=== PATIENT | female | born 1990 | race Caucasian/White ===

== ENCOUNTER 2016-09-20 20:44 | Emergency (ER) | payer MEDICAID ==
[2016-09-20 20:53] VITALS: BP 123/70; PULSE 84; RESP 17; TEMP 98.6; O2SAT 100
--- NOTE | 2016-09-20 21:21 | ED PDOC ---
HPI: Skin/Bite Injury Time Seen by Provider: 09/20/16 20:55 Chief Complaint (Nursing): Abnormal Skin Integrity Chief Complaint (Provider): hives History Per: Patient History/Exam Limitations: no limitations Onset/Duration Of Symptoms: Days (x 3) Current Symptoms Are (Timing): Still Present Additional Complaint(s): Sharad Pedraza is a 25 year old female, with a previous medical history of asthma, who presents to the ED with complaints of "hives" ongoing for the past 3 days. Pt reports associated symptoms of fever and chills. Pt denies any coughing, chest pain, shortness of breath or using new lotions. Pt reports hives subside when she is not home but once she goes home the skin begins to break out. 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 Pt reports to self medicating with nyquil to alleviate symptoms. PMD: none provided Past Medical History Reviewed: Historical Data, Nursing Documentation, Vital Signs Vital Signs: Last Vital Signs Temp 98.6 F 09/20/16 20:49 Pulse 84 09/20/16 20:49 Resp 17 09/20/16 20:49 BP 123/70 09/20/16 20:49 Pulse Ox 100 09/20/16 21:24 - Medical History PMH: Asthma, Bronchitis, Pneumonia - Family History Family History: States: Unknown Family Hx - Home Medications Home Medications: Ambulatory Orders Medication Instructions Recorded Albuterol HFA [Ventolin HFA 90 1 puff IH BID PRN #1 unit 07/28/16 mcg/actuation (8 g)] predniSONE [predniSONE Tab] 20 mg PO 12 #12 tab 09/20/16 - Allergies Allergies/Adverse Reactions: Allergies Allergy/AdvReac Type Severity Reaction Status Date / Time No Known Allergies Allergy Verified 07/28/16 17:08 Review of Systems ROS Statement: Except As Marked, All Systems Reviewed And Found Negative Constitutional: Positive for: Fever, Chills Cardiovascular: Negative for: Chest Pain Respiratory: Negative for: Cough, Shortness of Breath Skin: Positive for: Rash Physical Exam - Reviewed Nursing Documentation Reviewed: Yes Vital Signs Reviewed: Yes - Physical Exam Appears: Positive for: Well, Non-toxic, No Acute Distress Head Exam: Positive for: ATRAUMATIC, NORMAL INSPECTION, NORMOCEPHALIC Skin: Positive for: Normal Color (erythematous papules noted on face. several lesions have pinpoint white center ), Warm, Dry Eye Exam: Positive for: EOMI, Normal appearance, PERRL ENT: Positive for: Normal ENT Inspection. Negative for: Pharyngeal Erythema, Tonsillar Exudate, Tonsillar Swelling Cardiovascular/Chest: Positive for: Regular Rate, Rhythm Respiratory: Positive for: CNT, Normal Breath Sounds Neurologic/Psych: Positive for: Alert, Oriented - ECG O2 Sat by Pulse Oximetry: 100 (RA) Pulse Ox Interpretation: Normal Medical Decision Making Medical Decision Making: Initial Impression: Acne Initial Plan: * Influenza A B * reevaluation * * Discussed that rash on face and chest appears to be acne. Pt states it is not acne and she needs something right now for the rash. Scribe Attestation: Documented by Alyssa Cho, acting as a scribe for Ana Arshad PA-C. Provider Scribe Attestation: All medical record entries made by the Scribe were at my direction and personally dictated by me. I have reviewed the chart and agree that the record accurately reflects my personal performance of the history, physical exam, medical decision making, and the department course for this patient. I have also personally directed, reviewed, and agree with the discharge instructions and disposition. Disposition - Clinical Impression Clinical Impression: Rash - Disposition Referrals: FAMILY PROVIDER,NO [Primary Care Provider] - Disposition: Routine/Home Disposition Time: 23:04 Condition: STABLE Prescriptions: predniSONE [predniSONE Tab] 20 mg PO 12 #12 tab Instructions: Acute Rash (ED)
== END 2016-09-20 23:18 | disposition left against medical advice (07) ==
LOC: H.ER 20:44
DX: R21 Rash and other nonspecific skin eruption (principal)

== ENCOUNTER 2017-09-25 21:23 | Emergency (ER) | payer MEDICAID ==
[2017-09-25] MEDS ORDERED: Penicillin G Benzathine 1.2 Mill Unit/2 ml Syr IM ONE (23:10)
--- NOTE | 2017-09-25 23:13 | ED PDOC ---
HPI: CCC, URI, Sore Throat Time Seen by Provider: 09/25/17 21:39 Chief Complaint (Nursing): ENT Problem Chief Complaint (Provider): sore throat History Per: Patient History/Exam Limitations: no limitations Onset/Duration Of Symptoms: Days (3-4x) Associated Symptoms: Fever Additional Complaint(s): Patient reports 3-4 days of fever with sore throat. Patient states that she had a throat infection 4 weeks ago and visited her PMD and was given Amoxicillin and completed it. Otherwise: (-) cough, (-) URI symptoms, (-) SOB, (-) chest pain, (-) N/V/D, (-) abdominal pain, (-) flank pain, (-) urinary symptoms, (-) recent travel, (-) sick contacts. PMD: Provider TBD Past Medical History Reviewed: Historical Data, Nursing Documentation, Vital Signs Vital Signs: Last Vital Signs Temp 99.3 F 09/25/17 23:35 Pulse 98 H 09/25/17 23:35 Resp 18 09/25/17 23:35 BP 116/80 09/25/17 23:35 Pulse Ox 97 09/26/17 04:38 - Medical History PMH: Asthma, Bronchitis, Pneumonia - Family History Family History: States: Unknown Family Hx - Social History Current smoker - smoking cessation education provided: No Alcohol: None Drugs: Denies - Home Medications Home Medications: Ambulatory Orders Medication Instructions Recorded Albuterol HFA [Ventolin HFA 90 1 puff IH BID PRN #1 unit 07/28/16 mcg/actuation (8 g)] predniSONE [predniSONE Tab] 20 mg PO 12 #12 tab 09/20/16 Ibuprofen [Motrin Tab] 600 mg PO QID PRN #20 tab 09/25/17 - Allergies Allergies/Adverse Reactions: Allergies Allergy/AdvReac Type Severity Reaction Status Date / Time No Known Allergies Allergy Verified 07/28/16 17:08 Review of Systems ROS Statement: Except As Marked, All Systems Reviewed And Found Negative Constitutional: Positive for: Fever ENT: Positive for: Throat Pain Cardiovascular: Negative for: Chest Pain Respiratory: Negative for: Cough, Shortness of Breath Gastrointestinal: Negative for: Nausea, Vomiting, Abdominal Pain, Diarrhea Physical Exam - Physical Exam Comments: GENERAL APPEARANCE: Patient is awake, alert, oriented x 3, in no acute distress. SKIN: Warm, dry; (-) cyanosis, (-) rash. EYES: (-) conjunctival pallor, (-) scleral icterus, (-) conjunctival hemorrhage. ENMT: Mucous membranes moist. TMs: (-) erythema. Airway patent: (-) stridor. Pharynx: (+) erythema and edema to the tonsils, (-) exudate. NECK: (-) tenderness, (-) stiffness, (-) meningismus, (-) lymphadenopathy. CHEST AND RESPIRATORY: Lungs: (-) rales, (-) rhonchi, (-) wheezes, (-) rub; breath sounds equal bilaterally. HEART AND CARDIOVASCULAR: (-) irregularity; (-) murmur, (-) gallop, (-) rub. ABDOMEN AND GI: Soft; (-) tenderness, (-) guarding; (-) organomegaly; (-) mass. EXTREMITIES: (-) deformity. NEURO AND PSYCH: Mental status as above; (-) focal findings. - ECG O2 Sat by Pulse Oximetry: 97 (RA) Pulse Ox Interpretation: Normal Medical Decision Making Medical Decision Making: Time: 2158 Initial Plan: --Penicillin G Benzathine 1,200,000 units --Toradol 60mg --POC Urine Test --Rapid Strep Group A Antigen --Reevaluation Rapid strep : (+). On re-evaluation, patient laying in bed comfortably in no acute distress. On exam, patient remains AAOx3, in no acute distress, speaking in full sentences, no drooling. Diagnostic results d/w the patient in great detail. Diagnosis of strep pharyngitis d/w the patient. Medicated with pcn benzathine 1.2 million units IM. Based on history, exam and diagnostic results, plan will be for outpatient follow up. Patient instructed to follow-up with pmd in 1-2 days without fail. Advised to take medication as prescribed. Return to the emergency room at any time for any new or worsening symptoms. Patient states she fully agrees with and understands discharge instructions. States that she agrees with the plan and disposition. Verbalized and repeated discharge instructions and plan. I have given the patient opportunity to ask any additional questions. Scribe Attestation: Documented by Luis Antonio Bauer, acting as a scribe for Sosa Nelson PA-C Provider Scribe Attestation: All medical record entries made by the Scribe were at my direction and personally dictated by me. I have reviewed the chart and agree that the record accurately reflects my personal performance of the history, physical exam, medical decision making, and the department course for this patient. I have also personally directed, reviewed, and agree with the discharge instructions and disposition. Disposition - Clinical Impression Clinical Impression: Pharyngitis - Patient ED Disposition Is Patient to be Admitted: No Counseled Patient/Family Regarding: Studies Performed, Diagnosis, Need For Followup, Rx Given - Disposition Referrals: Provider CELIA, [Primary Care Provider] - Disposition: Routine/Home Disposition Time: 23:13 Condition: STABLE Additional Instructions: Thank you for letting us take care of you today. You were treated for strep pharyngitis. The emergency medical care you received today was directed at your acute symptoms. If you were prescribed any medication, please fill it and take as directed. It may take several days for your symptoms to resolve. Return to the Emergency Department if your symptoms worsen, do not improve, or if you have any other problems. Please contact your doctor in 2 days for re-evaluation and follow up. Bring any paperwork you were given at discharge with you along with any medications you are taking to your follow up visit. Our treatment cannot replace ongoing medical care by a primary care provider (PCP) outside of the emergency department. Thank you for allowing the [facility] team to be part of your care today. 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
[2017-09-25 23:36] VITALS: BP 116/80; PULSE 98; RESP 18; TEMP 99.3
[2017-09-26 04:34] VITALS: O2SAT 97
== END 2017-09-25 23:36 | disposition home or self-care (01) ==
LOC: H.ER 21:23 → SUPCPDRO 21:23 → H.ER 23:36
DX: J02.9 Acute pharyngitis, unspecified (principal)
CPT/HCPCS: 81025; 87430; 96372; 99282; J0561; J1885

== ENCOUNTER 2018-07-13 13:35 | Emergency (ER) | payer MEDICAID ==
[2018-07-13 13:55] VITALS: BP 123/85; PULSE 74; RESP 18; TEMP 98.5; O2SAT 98
[2018-07-13] MEDS ORDERED: cefTRIAXone (Rocephin) 250 mg Inj IM ONE (14:20)
--- NOTE | 2018-07-13 14:27 | ED PDOC ---
HPI: Female Pain Time Seen by Provider: 07/13/18 13:56 Chief Complaint (Nursing): Female Genitourinary Chief Complaint (Provider): vaginal discharge History Per: Patient History/Exam Limitations: no limitations Onset/Duration Of Symptoms: Days Current Symptoms Are (Timing): Still Present Severity: None Associated Symptoms: denies: Fever, Urinary Symptoms Additional Complaint(s): Pt. is a healthy 27 y/o Female who reports 3 day history of whitish-yellow vaginal discharge, which is slightly odorous as per pt. Pt. reports she is sexually active, and is concerned for STIs. Pt. denies abd. pain, fevers. Abnormal Vaginal Bleeding: No Past Medical History Vital Signs: Last Vital Signs Temp 98.5 F 07/13/18 13:54 Pulse 74 07/13/18 13:54 Resp 18 07/13/18 13:54 BP 123/85 07/13/18 13:54 Pulse Ox 98 07/13/18 13:54 - Medical History PMH: Asthma, Bronchitis, Pneumonia - Surgical History Surgical History: No Surg Hx - Family History Family History: States: Unknown Family Hx - Home Medications Home Medications: Ambulatory Orders Medication Instructions Recorded Albuterol HFA [Ventolin HFA 90 1 puff IH BID PRN #1 unit 07/28/16 mcg/actuation (8 g)] predniSONE [predniSONE Tab] 20 mg PO 12 #12 tab 09/20/16 Ibuprofen [Motrin Tab] 600 mg PO QID PRN #20 tab 09/25/17 Metronidazole [Flagyl] 500 mg PO BID 7 Days #14 tablet 07/13/18 - Allergies Allergies/Adverse Reactions: Allergies Allergy/AdvReac Type Severity Reaction Status Date / Time No Known Allergies Allergy Verified 07/13/18 13:51 Review of Systems Constitutional: Negative for: Fever, Chills Cardiovascular: Negative for: Chest Pain Respiratory: Negative for: Cough Genitourinary Female: Positive for: Vaginal Discharge (yellow). Negative for: Dysuria, Frequency, Vaginal Bleeding, Pelvic Pain Physical Exam - Reviewed Vital Signs Reviewed: Yes - Physical Exam Appears: Positive for: Well, Non-toxic Skin: Positive for: Normal Color, Warm, Dry Cardiovascular/Chest: Positive for: Regular Rate, Rhythm Respiratory: Positive for: Normal Breath Sounds Gastrointestinal/Abdominal: Positive for: Normal Exam, Bowel Sounds, Soft. Negative for: Tenderness, Guarding, Rebound Pelvic Exam: Positive for: External Exam Normal, Bimanual Exam Normal, No Cerv. Motion Tender, Discharge (mild yellow discharge). Negative for: Active Bleeding, Tender Adnexa, Tender Uterus - ECG O2 Sat by Pulse Oximetry: 98 Medical Decision Making Medical Decision Making: U. preg neg Urine gc/chlamydia sent. IM rocephin and po zithro given. Will also give rx flagyl to cover BV given odorous discharge. Pt. well appearing, non toxic, with no clinical signs or symptoms of PID. 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 Disposition - Clinical Impression Clinical Impression: Vaginitis - Patient ED Disposition Is Patient to be Admitted: No Counseled Patient/Family Regarding: Diagnosis, Need For Followup, Rx Given - Disposition [facility] Disposition: Routine/Home Disposition Time: 14:33 Condition: STABLE Prescriptions: Metronidazole [Flagyl] 500 mg PO BID 7 Days #14 tablet Instructions: Bacterial Vaginosis (DC), Vaginitis, Screening for Sexually Transmitted Infections
[2018-07-13] MEDS ORDERED: cefTRIAXone (Rocephin) 250 mg Inj ONE (15:09)
[2018-07-13] MEDS ORDERED: Sodium Chloride 0.9% 0 ML IV ONE (15:10)
[2018-07-13] MEDS ORDERED: Sterile Water 10 ML IV ONE (15:12)
== END 2018-07-13 15:28 | disposition home or self-care (01) ==
LOC: H.ER 13:35
DX: N76.0 Acute vaginitis (principal); J45.909 Unspecified asthma, uncomplicated
CPT/HCPCS: 81025; 87491; 87591; 96372; 99283; J0696